=== PATIENT | male | born 1980 | race Two or more races ===

== ENCOUNTER 2025-03-16 07:06 | Emergency (ER) | payer MEDICAID ==
[~2025-03-16] VITALS: Ht 188 cm; Wt 99.7 kg
[2025-03-16 07:32] VITALS: O2SAT 97
[2025-03-16] MEDS ORDERED: TOPUD PO (08:03)
[2025-03-16 08:13] VITALS: BP 115/64; PULSE 82; RESP 18; TEMP 37.1; O2SAT 97
[2025-03-16] MEDS ORDERED: BENZONATATE 100MG CAPSULE PO ONE (08:15)
== END 2025-03-16 08:15 | disposition home or self-care (01) ==
LOC: ER 07:06
DX: U07.1 COVID-19 (principal)
CPT/HCPCS: 99282